=== PATIENT | female | born 1970 | race Caucasian/White ===

== ENCOUNTER 2017-11-12 09:23 | Emergency (ER) | payer BC ==
[2017-11-12] MEDS ORDERED: CYCLOBENZAPRINE HCL 10 MG TABLET PO ONE (10:05)
--- NOTE | 2017-11-12 10:05 | ER Document Report ---
ED Medical Screen (RME) - General Chief Complaint: Leg Pain Stated Complaint: LEG PAIN Time Seen by Provider: 11/12/17 10:01 Notes: RME DISCLOSURE I have seen this patient as part of a Rapid Medical Evaluation and, if applicable, placed any initially appropriate orders. The patient will be seen and fully evaluated, including a full history and physical exam, by a provider ( in Main ED or Fast Track) when a room becomes available. 47-year-old female PMH BRCA (in remission) on tamoxifen here with complaints of left calf cramping/pain ongoing for the past few days. She does not have it anywhere else. She denies leg swelling. She has no prior history of DVT. She did have some recent airplane and vehicle travel. TRAVEL OUTSIDE OF THE [place] IN LAST 30 DAYS: No - Related Data Allergies/Adverse Reactions: Sulfa (Sulfonamide Antibiotics) Allergy (Verified 11/12/17 09:27) morphine Adverse Reaction (Verified 11/12/17 09:27) Physical Exam - Vital signs Vitals: Temp Pulse Resp BP Pulse Ox 99.0 F 108 H 18 126/77 H 98 11/12/17 09:31 11/12/17 09:31 11/12/17 09:31 11/12/17 09:31 11/12/17 09:31 Course - Vital Signs Vital signs: Temp Pulse Resp BP Pulse Ox 99.0 F 108 H 18 126/77 H 98 11/12/17 09:31 11/12/17 09:31 11/12/17 09:31 11/12/17 09:31 11/12/17 09:31
[2017-11-12 10:36] LABS: ABSOLUTE BASOPHILS # (AUTO) 0.1 10^3/uL (0.0-0.2); ABSOLUTE MONOCYTES (AUTO) 0.8 10^3/uL (0.1-1.4); ABSOLUTE NEUT (AUTO) 4.2 10^3/uL (1.7-8.2); BASOPHILS % (AUTO) 0.9 % (0-2); EOSINOPHILS % (AUTO) 0.5 % (0-6); HEMATOCRIT 37.4 % (36.0-47.0); HEMOGLOBIN 12.5 g/dL (12.0-15.5); LYMPHOCYTES % (AUTO) 27.9 % (13-45); MEAN CORPUSCULAR HEMOGLOBIN 30.2 pg (27.0-33.4); MEAN CORPUSCULAR HGB CONC 33.4 g/dL (32.0-36.0); MEAN CORPUSCULAR VOLUME 90 fl (80-97); MONOCYTES % (AUTO) 11.9 % (3-13); PLATELET COUNT 480 10^3/uL (150-450); RED BLOOD COUNT 4.13 10^6/uL (3.72-5.28); RED CELL DISTRIBUTION WIDTH 13.2 % (11.5-14.0); SEGMENTED NEUTROPHILS % (AUTO) 58.8 % (42-78); TOTAL CELLS COUNTED % (AUTO) 100 %; WHITE BLOOD COUNT 7.1 10^3/uL (4.0-10.5)
[2017-11-12 10:46] LABS: ANION GAP 11 (5-19); BLOOD UREA NITROGEN 13 mg/dL (7-20); CALCIUM 9.8 mg/dL (8.4-10.2); CARBON DIOXIDE 28 mmol/L (22-30); CHLORIDE 104 mmol/L (98-107); GLUCOSE 87 mg/dL (75-110); PHOSPHORUS 3.8 mg/dL (2.5-4.5); POTASSIUM 4.3 mmol/L (3.6-5.0); SODIUM 142.6 mmol/L (137-145)
--- NOTE | 2017-11-12 10:57 | ER Document Report ---
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 Patient recently traveled here from [place] (a few plane rides and 2 hours in the car) . She denies any chest pain or shortness of breath. She denies any illnesses in the past week. She does state that 2 weeks ago she had food poisoning for 2 days but is been okay since that time. She denies any fever, chills, nausea, vomiting, diarrhea. There is no family history of DVTs. She has never had a DVT. She is not a smoker. TRAVEL OUTSIDE OF THE [place] IN LAST 30 DAYS: No - HPI Onset: Last week Onset/Duration: Gradual Quality of pain: No pain Severity: None Pain Level: Denies Associated symptoms: denies: Chills, Fever, Shortness of breath Exacerbated by: Denies Relieved by: Denies Similar symptoms previously: No Recently seen / treated by doctor: No - Related Data Allergies/Adverse Reactions: Sulfa (Sulfonamide Antibiotics) Allergy (Verified 11/12/17 09:27) morphine Adverse Reaction (Verified 11/12/17 09:27) Past Medical History - General Information source: Patient - Social History Smoking Status: Never Smoker Cigarette use (# per day): No Chew tobacco use (# tins/day): No Frequency of alcohol use: Occasional Drug Abuse: None Lives with: Family Family History: None Patient has suicidal ideation: No Patient has homicidal ideation: No - Past Medical History Cardiac Medical History: Reports: None Pulmonary Medical History: Reports: None EENT Medical History: Reports: None Neurological Medical History: Reports: None Endocrine Medical History: Reports: None Renal/ Medical History: Reports: Hx Kidney Stones. Denies: Hx Peritoneal Dialysis Malignancy Medical History: Reports: Hx Breast Cancer GI Medical History: Reports: None Musculoskeltal Medical History: Reports None Skin Medical History: Reports None Psychiatric Medical History: Reports: None Traumatic Medical History: Reports: None Infectious Medical History: Reports: None Past Surgical History: Reports: Hx Section - 3, Hx Hysterectomy, Other - Lumpectomy Review of Systems - Review of Systems Constitutional: denies: Chills, Fever EENT: No symptoms reported Cardiovascular: denies: Chest pain, Palpitations, Heart racing, Syncope Respiratory: denies: Cough, Short of breath Gastrointestinal: No symptoms reported Genitourinary: No symptoms reported Female Genitourinary: No symptoms reported Musculoskeletal: See HPI Skin: No symptoms reported Hematologic/Lymphatic: No symptoms reported Neurological/Psychological: No symptoms reported Physical Exam - Vital signs Vitals: Temp Pulse Resp BP Pulse Ox 99.0 F 108 H 18 126/77 H 98 11/12/17 09:31 11/12/17 09:31 11/12/17 09:31 11/12/17 09:31 11/12/17 09:31 Notes: Physical exam: GENERAL: 47-year-old female, alert and oriented 3, no acute distress HEAD: Atraumatic, normocephalic. EYES: Pupils equal round and reactive to light, extraocular movements intact, sclera anicteric, conjunctiva are normal. ENT: TMs normal, nares patent, oropharynx clear without exudates. Moist mucous membranes. NECK: Normal range of motion, supple without obvious mass or JVD. LUNGS: Breath sounds clear to auscultation bilaterally and equal. No wheezes rales or rhonchi. HEART: Regular rate and rhythm without murmurs, rubs or gallops. ABDOMEN: Soft, normoactive bowel sounds. No tenderness to palpation. No guarding, no rebound. No masses appreciated. EXTREMITIES: Normal range of motion, no pitting or edema. No clubbing or cyanosis. NEUROLOGICAL: Cranial nerves II through XII grossly intact. Normal speech, moving all extremities. PSYCH: Normal mood, normal affect. SKIN: Warm, Dry, normal turgor, no rashes or lesions noted. Course - Re-evaluation Re-evalutation: 11/12/17 11:56 Note: Venous Dopplers show no evidence of DVT. The exam of the lower extremities shows no erythema or significant swelling. The distal pulses are 2+ . Distal cap refill is good. There is no evidence of vascular problems or infection. I have given the patient a copy of the electrolytes, renal function studies, blood counts and venous Doppler reports. I have advised her to follow- up with her primary care doctor when back in [place] (she is leaving in a few days). I will give her some symptomatic relief until then. 11/12/17 12:00 (the patient has had Percocet without any problems in the past) - Vital Signs Vital signs: Temp Pulse Resp BP Pulse Ox 97.9 F 81 14 110/63 96 11/12/17 12:17 11/12/17 12:17 11/12/17 12:17 11/12/17 12:17 11/12/17 12:17 - Laboratory Result Diagrams: 11/12/17 09:35 11/12/17 09:35 Laboratory results interpreted by me: 11/12/17 09:35 Plt Count 480 H - Diagnostic Test Radiology reviewed: Image reviewed, Reports reviewed - This Dopplers showed no DVT Discharge - Discharge Clinical Impression: Left calf pain Condition: Stable Disposition: HOME, SELF-CARE Additional Instructions: As we discussed, your blood work looked quite good today. Doppler showed no evidence of blood clots. I would take ibuprofen as needed intermittently. Take the Flexeril for muscle relaxation and Percocet for breakthrough pain. At the time of discharge, I have instructed the patient at the bedside with regards to return precautions and follow-up recommendations. The opportunity for questions was given. The patient has verbalized understanding of these instructions and the need for follow-up. The pain medicine you're taking prescribed as a narcotic. There are several important things you should know about this medicine: 1. This medicine contains Tylenol: It is important that you do not take Tylenol (or acetaminophen) while on this medicine. Tylenol is metabolized by the liver and taking too much Tylenol (acetaminophen) can lay to liver damage and even liver failure. 2. Taking narcotics for too long can lead to physical and mental dependence. Take this medicine only if really needed and in the lowest quantity to achieve pain relief. 3. Do not drink alcohol while on this medicine. Alcohol interacts with narcotics and the combination can be dangerous. 4. Do not drive or operate machinery while on this medicine. 5. Narcotics do cause constipation, so drink plenty of fluids and daily stool softeners. Prescriptions: Cyclobenzaprine HCl [Flexeril 10 Mg Tablet] 10 mg PO Q8HP PRN #14 tablet PRN Reason: Oxycodone HCl/Acetaminophen [Percocet 5-325 mg Tablet] 1 - 2 tab PO ASDIR PRN # 15 tablet PRN Reason:
--- NOTE | 2017-11-12 11:20 | RADIOLOGY REPORT (SQ) ---
EXAM DESCRIPTION: VENOUS UNILATERAL LOWER COMPLETED DATE/TIME: 11/12/2017 11:12 am REASON FOR STUDY: L calf pain/cramping BRCA prolonged travel; DVT? COMPARISON: None. TECHNIQUE: Dynamic and static deluna scale and color images acquired of the left leg venous system. Se lected spectral images acquired with additional compression and augmentation maneuvers. The contralat eral common femoral vein and saphenofemoral junction were also imaged. Images stored on PACS. LIMITATIONS: None. FINDINGS: LEFT COMMON FEMORAL: Normal phasicity, compression and augmentation. No visualized echogenic material on g ray scale. No defects on color images. FEMORAL: Normal compression and augmentation. No visualized echogenic material on deluna scale. No defe cts on color images. POPLITEAL: Normal compression, augmentation. No visualized echogenic material on deluna scale. No defec ts on color images. CALF VESSELS: Normal compression, augmentation. No visualized echogenic material on deluna scale. No de fects on color images. GSV and SSV: Normal compression, augmentation. No visualized echogenic material on deluna scale. No def ects on color images. ANY DEEP VENOUS INSUFFICIENCY: No. ANY EVIDENCE OF POPLITEAL CYST: No. OTHER: No other significant finding. RIGHT COMMON FEMORAL VEIN AND SAPHENOFEMORAL JUNCTION: Normal phasicity, compression and augmentation. No visualized echogenic material on deluna scale. No de fects on color images. IMPRESSION: NO EVIDENCE OF DVT OR SVT IN THE LEFT LEG. TECHNICAL DOCUMENTATION: JOB ID: [id number] [employer]- All Rights Reserved Reading location - IP/workstation name: [email or web address]
[2017-11-12 12:32] VITALS: BP 110/63
== END 2017-11-12 12:20 | disposition home or self-care (01) ==
LOC: ER 09:23
DX: M79.605 Pain in left leg (principal); Z88.2 Allergy status to sulfonamides; Z88.6 Allergy status to analgesic agent; Z85.3 Personal history of malignant neoplasm of breast; Z87.442 Personal history of urinary calculi; Z90.710 Acquired absence of both cervix and uterus
CPT/HCPCS: 36415; 80048; 83735; 84100; 85025; 93971; 99284